=== PATIENT | male | born 1945 | race Caucasian/White ===

== ENCOUNTER 2025-08-16 03:13 | Emergency (ER) | payer MEDICARE, SELFPAY ==
[2025-08-16] VITALS (14 sets, daily range): BP systolic 115–147; BP diastolic 57–78; PULSE 66–78; RESP 17–26; TEMP 36.6–37.1; O2SAT 93–98; BMI 26.4
--- NOTE | 2025-08-16 03:37 | HMH.EDGENADL ---
Discharge Plan Disposition Patient Disposition: Xfer Other Prescriptions Prescriptions: No Action metformin 500 mg tablet 500 mg PO BID Patient Comments: TAKE TWO (2) TABLETS BY MOUTH TWICE DAILY WITH MORNING AND EVENING MEALS glipizide 10 mg tablet 10 mg PO DAILY Patient Comments: TAKE TWO (2) TABLETS BY MOUTH TWICE DAILY prednisone 20 mg tablet 20 mg PO DAILY Patient Comments: TAKE 2 TABLETS BY MOUTH EVERY DAY FOR 5 DAYS amoxicillin 500 mg tablet 500 mg PO BID Patient Comments: TAKE 1 TABLET BY MOUTH TWICE DAILY ondansetron 8 mg tablet,disintegrating 8 mg PO DAILY PRN Patient Comments: DISSOLVE 1 TABLET ON TOP OF TONGUE THREE (3) TIMES DAILY NEEDED, FOR NAUSEA. prednisolone acetate 1 % drops,suspension 1 drp Eye-Left QID Patient Comments: INSTILL ONE (1) DROP LEFT EYE FOUR (4) TIMES A DAY FOR 7-10 DAYS paroxetine HCl 20 mg tablet PO Patient Comments: TAKE ONE-HALF TABLETS BY MOUTH TWICE DAILY simvastatin 20 mg tablet 20 mg PO DAILY Patient Comments: TAKE ONE (1) TABLET BY MOUTH EACH EVENING ferrous sulfate [FeroSul] 325 mg (65 mg iron) tablet 325 mg PO DAILY Patient Comments: TAKE 1 TABLET BY MOUTH EVERY DAY aspirin 81 mg tablet 81 mg PO DAILY cyanocobalamin (vitamin B-12) 1,000 mcg tablet, sublingual 1,000 mcg PO DAILY Patient Comments: PLACE ONE (1) TABLET EVERY DAY BY SUBLINGUAL ROUTE. hydrochlorothiazide 25 mg tablet 25 mg PO DAILY Patient Comments: TAKE ONE (1) TABLET BY MOUTH EVERY DAY mirtazapine 15 mg tablet 15 mg PO DAILY Patient Comments: TAKE ONE (1) TABLET EVERY DAY BY ORAL ROUTE AT BEDTIME. (DME) pen needle, diabetic [Unifine Pentips] 31 gauge x 3/16 needle See Rx Instructions .ROUTE .MEDSUPPLY Qty: 1200 Patient Comments: USE DIRECTED WITH LANTUS Rx Instructions: As directed insulin glargine [Lantus Solostar U-100 Insulin] 100 unit/mL (3 mL) insulin pen 25 unit SQ ONCE Patient Comments: INJECT 25 UNITS BY SUBCUTANEOUS ROUTE. Jardiance 25 mg tablet 25 mg PO DAILY Patient Comments: TAKE ONE (1) TABLET BY MOUTH EVERY DAY Vitamin 27 mg iron- 800 mcg tablet 1 tab PO DAILY Patient Comments: TAKE ONE (1) TABLET EVERY DAY BY ORAL ROUTE. metoprolol succinate 50 mg tablet extended release 24 hr 25 mg PO DAILY Patient Comments: TAKE ONE (1) TABLET BY MOUTH EVERY DAY Referrals Follow up/Referrals: Radha Sawant APRN [Primary Care Provider, Medical] - See instructions Clinical Impressions Clinical Impression: Intracranial mass, Seizure-like activity Instructions Patient Instructions: DI for Altered Mental Status Print Language Print Language: Serbian Discharge ED Provider: Kai Shelton General Adult HPI General Chief complaint: Altered Mental Status Stated complaint: Fever; General Weakness; Abdominal Issues; Dizzy Time Seen by Provider: 08/16/25 03:15 Mode of Arrival: Family Vehicle Source of Information: Patient and Spouse Description of Symptoms (Recalled from ER Triage Doc. by RN): AMS Pt presents to the ED accompanied by his with mutiple complaints. Pt's reports that the pt has AMS, fever ad hypotension X 3 weeks. She reports that the pt was seen at [facility], but states they didn't find anything wrong . History of Present Illness HPI narrative: 79-year-old male with history of coronary artery disease with history of pacemaker, type 2 diabetes, hypertension presents for multiple complaints. Patient has had ongoing intermittent symptoms for the last 2 to 3 weeks. These include episodes of fever and altered mental status that are brief, only happening at night. He has also had lower blood pressure than normal recently. He has had workup at another ER and with his PCP. His workup at the other ER showed mild anemia, a mildly elevated creatinine and minimally elevated LFTs. He had a CT scan which showed a possible cyst in the head of the pancreas. Patient has been eating okay today and has been doing well, but tonight he had one of his episodes. He felt hot and he was very weak, dragging both legs, could barely walk and was unsteady. He was confused at that time as well. He had a fever of 101 during the episode. The symptoms have now almost completely resolved. They report no facial droop or unilateral symptoms. He is working to get follow-up with Dr. Cardona and other providers to try to figure out what is going on. He reports no current chest pain abdominal pain shortness of breath or any other symptoms. He has had this happen about 5 times in the last 2 to 3 weeks. They initially reported no seizure-like activity during these episodes, but on further discussion they report that he has had some generalized shaking that has been associated with some of the episodes lasting a few minutes. Related Data Home Medications ?Medication ?Instructions ?Recorded ?Confirmed amoxicillin 500 mg tablet 500 mg PO BID 08/14/25 08/14/25 aspirin 81 mg tablet 81 mg PO DAILY 08/14/25 08/14/25 cyanocobalamin (vitamin B-12) 1,000 mcg PO DAILY 08/14/25 08/14/25 1,000 mcg sublingual tablet empagliflozin 25 mg tablet 25 mg PO DAILY 08/14/25 08/14/25 (Jardiance) ferrous sulfate 325 mg (65 mg 325 mg PO DAILY 08/14/25 08/14/25 iron) tablet (FeroSul) glipizide 10 mg tablet 10 mg PO DAILY 08/14/25 08/14/25 hydrochlorothiazide 25 mg tablet 25 mg PO DAILY 08/14/25 08/14/25 insulin glargine 100 unit/mL (3 25 unit SQ ONCE 08/14/25 08/14/25 mL) subcutaneous pen (Lantus Solostar U-100 Insulin) metformin 500 mg tablet 500 mg PO BID 08/14/25 08/14/25 metoprolol succinate 50 mg 25 mg PO DAILY 08/14/25 08/14/25 tablet,extended release 24 hr mirtazapine 15 mg tablet 15 mg PO DAILY 08/14/25 08/14/25 ondansetron 8 mg disintegrating 8 mg PO DAILY PRN 08/14/25 08/14/25 tablet paroxetine HCl 20 mg tablet mg PO 08/14/25 08/14/25 pen needle, diabetic 31 gauge x #1,200 ea 08/14/25 08/14/25/16 (Unifine Pentips) prednisolone acetate 1 % eye 1 drp Eye-Left QID 08/14/25 08/14/25 drops,suspension prednisone 20 mg tablet 20 mg PO DAILY 08/14/25 08/14/25 vits no.130-ferrous fum 1 tab PO DAILY 08/14/25 08/14/25 27 mg iron-folic acid 800 mcg tablet ( Vitamin) simvastatin 20 mg tablet 20 mg PO DAILY 08/14/25 08/14/25 Allergies Allergy/AdvReac Type Severity Reaction Status Date / Time No Known Allergies Allergy Verified 08/14/25 09:26 [facility] Disclaimer: The information contained in this section may have been updated after the patient was seen, as this information can be updated by other users. Medical History (Updated 08/16/25 @ 07:00 by Kai Shelton MD) Anemia Hyperlipidemia CAD in [place] artery History of pacemaker Social History (Updated 08/14/25 @ 11:24 by Renetta Chery APRN) Smoking Status: Never smoker alcohol intake: never current occupational status: other Travel in the last 8 weeks?: None Have you lived/traveled outside US in past 30 days?: No Contact w/someone who lives/traveled outside US past 30 days?: No Exposure to someone with infectious disease in past 14 days?: No Do you have a fever (greater than 100.4 F or 38 C)?: No Have you tested positive for COVID-19?: No Exposed to someone with COVID-19 in past 14 days?: No Do you have a sore throat?: No Do you have a cough?: No Do you have any weakness?: No Do you have any diarrhea?: No Are you experiencing any unusual bleeding?: No Do you have any muscle aches/pain?: No Do you have any abdominal pain?: No Are you experiencing loss of taste or smell?: No ROS Obtained: Yes All systems reviewed & no additional complaints except as documented Physical Exam General General appearance: alert and in no apparent distress Head Head exam: atraumatic and normocephalic Eye Eye exam: Present normal appearance, PERRL and EOMI ENT ENT exam: Present normal oropharynx and normal external ear exam Neck Neck exam: Present normal inspection and full ROM Chest Chest inspection: Present normal inspection and symmetric chest wall rise; Absent tenderness Respiratory Respiratory exam: Present normal lung sounds bilaterally; Absent respiratory distress Cardiovascular Cardiovascular exam: Present regular rate and normal rhythm Abdominal Exam Abdominal exam: Present soft; Absent distention, tenderness or guarding Extremities Exam Extremities exam: Present normal inspection; Absent edema or joint swelling Back Exam Back exam: Present normal inspection; Absent tenderness Neurological Exam Neurological exam: Present alert, oriented X3, CN II-XII intact and reflexes normal; Absent motor sensory deficit Psychiatric Psychiatric exam: Present normal affect and normal mood Skin Skin exam: Present warm, dry and normal color Lymphatic Lymphatic Findings: no adenopathy Medical Decision Making Medical Records Medical records reviewed: Yes I reviewed the patient's medical records. Screening: Per USPSTF and CDC recommendations, given the prevalence of disease in our region, it is our hospital?s policy to screen for HIV and viral Hepatitis for all patients aged 18 and over and those with ongoing risk factors. Jaguar Inquiry Pt receiving controlled substance: No Jaguar was queried for this patient: No Vital Signs: 08/16/25 03:28 08/16/25 03:29 08/16/25 03:30 Temperature 98.7 F Temperature Source Temporal Artery Scan Pulse Rate 66 78 Pulse Rate [Left] 75 Respiratory Rate 23 18 23 Blood Pressure 118/64 134/57 L Blood Pressure [Right Arm] 133/67 Blood Pressure Mean 89 82 Blood Pressure Mean [Right Arm] 89 Blood Pressure Source Blood Pressure Source [Right Arm] Automatic Cuff Blood Pressure Position [Right Arm] Sitting 02 Sat by Pulse Oximetry 98 95 93 L Oxygen Delivery Method Room Air 08/16/25 04:00 08/16/25 04:40 08/16/25 04:45 Temperature Temperature Source Pulse Rate 77 75 74 Pulse Rate [Left] Respiratory Rate 26 H 17 21 Blood Pressure 115/62 Blood Pressure [Right Arm] Blood Pressure Mean 88 Blood Pressure Mean [Right Arm] Blood Pressure Source Blood Pressure Source [Right Arm] Blood Pressure Position [Right Arm] 02 Sat by Pulse Oximetry 96 97 97 Oxygen Delivery Method 08/16/25 05:00 08/16/25 05:15 08/16/25 05:30 Temperature Temperature Source Pulse Rate 78 69 Pulse Rate [Left] Respiratory Rate 18 23 Blood Pressure 136/74 147/73 H Blood Pressure [Right Arm] Blood Pressure Mean 82 Blood Pressure Mean [Right Arm] Blood Pressure Source Automatic Cuff Blood Pressure Source [Right Arm] Blood Pressure Position [Right Arm] 02 Sat by Pulse Oximetry 97 95 Oxygen Delivery Method Room Air Lab Data Lab results reviewed: Yes I reviewed the patient's lab results. Lab Results 08/16/25 03:22: WBC 4.5 L, RBC 4.57 L, Hgb 13.3 L, Hct 39.5 L, MCV 86.4, MCH 29.1, MCHC 33.7, RDW 12.8, Plt Count 176, MPV 10.2, Neut % (Auto) 69.8, Lymph % (Auto) 19.8, [place] % (Auto) 9.3, Eos % (Auto) 0.0 L, Baso % (Auto) 0.2, Neut # (Auto) 3.2, Lymph # (Auto) 0.9, [place] # (Auto) 0.4, Eos # (Auto) 0.0, Baso # (Auto) 0.0, PT 11.4, INR 1.03, Sodium 134 L, Potassium 4.2, Chloride 102, Carbon Dioxide 23, Anion Gap 13.2, BUN 40 H, Creatinine 1.20, Estimated Creat Clear 63, Estimated GFR 59, Est GFR ( Amer) 71, Glucose 187 H, Calcium 10.0, Phosphorus 4.0, Magnesium 2.0, Total Bilirubin 0.8, AST 73 H, ALT 110 H, Alkaline Phosphatase 135 H, Troponin I < 0.01, C-Reactive Protein 32.9 H, Total Protein 6.4, Albumin 3.6, Globulin 2.8, Albumin/Globulin Ratio 1.3, Lipase 259, TSH 2.84, Thyroxine (T4) 8.1 08/16/25 03:43: SARS-CoV-2 (PCR) Not detected, Influenza A Untype (PCR) Not detected, Influenza Type B (PCR) Not detected 08/16/25 03:48: Urine Color Yellow, Urine Appearance Clear, Urine pH 5.5, Ur Specific [place] <= 1.005, Urine Protein Negative, Urine Glucose (UA) 3+, Urine Ketones Negative, Urine Blood Negative, Urine Nitrate Negative, Urine Bilirubin Negative, Urine Urobilinogen 0.2, Ur Leukocyte Esterase Negative, Urine RBC Occasional 08/16/25 03:22 08/16/25 03:22 Orders (Tests/Meds): ED MEDICATIONS Generic Name Dose Route Start Last Admin Trade Name Freq PRN Reason Stop Dose Admin Levetiracetam 3,500 mg/ Sodium 135 mls @ 270 mls/hr 08/16/25 06:48 Chloride IV 08/16/25 06:49 ONCE ONE Discontinued Medications Generic Name Dose Route Start Last Admin Trade Name Freq PRN Reason Stop Dose Admin Iopamidol 80 ml 08/16/25 04:21 08/16/25 04:22 Iopamidol-370 (76%);100ml Bottle IV 08/16/25 04:22 80 ml ONCE ONE Administration Sodium Chloride 50 ml 08/16/25 04:21 08/16/25 04:22 0.9 % Sodium Chloride 50 Ml Vial IV 08/16/25 04:22 50 ml ONCE ONE Administration Sodium Chloride 10 ml 08/16/25 04:21 08/16/25 04:22 Sodium Chloride 0.9% 10ml Syr (Rad Only) IV 08/16/25 04:22 10 ml ONCE ONE Administration ORDERS Category Date Time Status CT angio head Stat Cat Scan 08/16/25 03:[address] angio neck Stat Cat Scan 08/16/25 03:[address] head/brain wo con Stat Cat Scan 08/16/25 03:38 Completed CXR --portable [XR chest portable] Stat Exams 08/16/25 04:10 Completed KUB (single view) [XR KUB] Stat Exams 08/16/25 04:12 Completed CBC w/Auto Diff [Complete Blood Count Auto Diff] Stat Lab 08/16/25 03:22 Completed CMP [Comprehensive Metabolic Panel] Stat Lab 08/16/25 03:22 Completed CRP [C-Reactive Protein] Stat Lab 08/16/25 03:22 Completed INR [Prothrombin Time INR] Stat Lab 08/16/25 03:22 Completed Lipase Stat Lab 08/16/25 03:22 Completed Magnesium Stat Lab 08/16/25 03:22 Completed Phosphorous Stat Lab 08/16/25 03:22 Completed Rapid PCR Covid and Flu A/B Stat Lab 08/16/25 03:43 Completed T4 (Thyroxine) Stat Lab 08/16/25 03:22 Completed TSH [Thyroid Stimulating Hormone] Stat Lab 08/16/25 03:22 Completed Troponin I Q3H Lab 08/16/25 03:22 Completed Troponin I Q3H Lab 08/16/25 06:45 Ordered UA [Urinalysis and Microscopic] Stat Lab 08/16/25 03:48 Completed Blood Culture Stat Micro 08/16/25 03:52 Received Medical Decision Narrative: 79-year-old male with history of type 2 diabetes, coronary artery disease, hypertension presents for multiple complaints. History was obtained via interactive discussion with patient, family. On arrival, patient is [afebrile, hemodynamically stable, satting appropriately, alert, GCS 15], moving all extremities spontaneously. Full physical exam performed and significant for NIH of 0. Family reports that he is a little bit more slow to respond/confused than normal, but he is much better from the episode prior to arrival. Differential includes but is not limited to stroke, seizure, intracranial mass, UTI, pneumonia, malignancy Workup initiated including CTA head and neck, chest x-ray, KUB, broad-spectrum labs. On re-evaluation, patient remains hemodynamically stable. Laboratory workup independently interpreted by me and significant for normal renal function, urinalysis without evidence of infection, mild anemia, no significant electrolyte derangement, negative initial troponin, negative lipase, normal thyroid studies. Imaging independently interpreted by me and significant for no evidence of acute stroke. Patient has a 3 cm enhancing midline extra-axial mass arising from the floor of the anterior cranial fossa. No evidence of mass effect or shift. See radiology read for full review of final results. The underlying etiology of patient's symptoms may be this developing meningioma/frontal mass. Could be explained by subclinical seizures secondary to the mass, or perhaps mass effect on the HPA axis is causing some autonomic changes. I called and spoke with the transfer center for further guidance. Surgery reports that they would be happy to see the patient in clinic but do not have any immediate intervention. Called and spoke with neurology as well given the concern for possible seizures in the setting of brain mass. They recommend medicine admission with neurology consultation. We were able to get the patient accepted to [facility] ER for further evaluation. She was loaded with 2.5 g of Keppra, neurology recommends 1 g Keppra twice daily thereafter. Given patient history, exam and workup, patient's presentation most likely represents intracranial mass with possible new onset seizures. Patient was transferred POV per family request. Procedures Risk/Benefits of Procedure(s) Were Explained: Yes Critical Care Critical Care Time Critical Care Time: No
--- NOTE | 2025-08-16 03:38 | CT_ITS ---
PROCEDURE INFORMATION: Exam: CTA Neck Without And With Contrast Exam date and time: 08/16/2025 4:23 AM Age: 79 years old Clinical indication: Weakness and other: Intermittent AMS; Additional info: Intermittent ams/ generalized weakness TECHNIQUE: Imaging protocol: Computed tomographic angiography of the neck without and with contrast. Exam focused on the cervical segments of the vasculature. 3D rendering (Not supervised by radiologist): MIP and/or 3D reconstructed images were created by the technologist. Radiation optimization: All CT scans at this facility use at least one of these dose optimization techniques: automated exposure control; mA and/or kV adjustment per patient size (includes targeted exams where dose is matched to clinical indication); or iterative reconstruction. Contrast material: ISVOUE; Contrast volume: 75 ml; Contrast route: INTRAVENOUS (IV); COMPARISON: CT HEAD/BRAIN WO CON 08/16/2025 4:22 AM FINDINGS: Tubes, catheters and devices: Left anterior chest wall cardiac pacemaker. Right common carotid artery: No stenosis. No dissection or occlusion. Right internal carotid artery: No stenosis of the extracranial segment. No dissection or occlusion. Right external carotid artery: No occlusion or stenosis of the origin. Left common carotid artery: No stenosis. No dissection or occlusion. Left internal carotid artery: No stenosis of the extracranial segment. No dissection or occlusion. Left external carotid artery: No occlusion or stenosis of the origin. Right vertebral artery: Dominant right vertebral artery, a normal anatomic variant. No stenosis. No dissection or occlusion. Left vertebral artery: Hypoplastic non dominant left vertebral artery, a normal anatomic variant. No stenosis. No dissection or occlusion. Soft tissues: Normal. No significant soft tissue swelling. Bones/joints: No acute fracture. Lungs: Small calcified granulomas in the upper lungs. Visualized lung apices otherwise clear. IMPRESSION: No extracranial stenosis, dissection, nor occlusion. REFERENCES: NASCET CRITERIA. The degree of stenosis in the cervical segment of the internal carotid artery is based on NASCET criteria. Normal is no stenosis. Mild is less than 50% stenosis. Moderate is 50-69% stenosis. Severe is 70% to 99% stenosis. Total occlusion is no detectable patent lumen.
--- NOTE | 2025-08-16 03:38 | CT_ITS ---
PROCEDURE INFORMATION: Exam: CTA Head Without And With Contrast, Arteriography Exam date and time: 08/16/2025 4:23 AM Age: 79 years old Clinical indication: Weakness; Additional info: Intermittent ams/ generalized weakness TECHNIQUE: Imaging protocol: Computed tomographic angiography of the head without and with contrast. Exam focused on the arteries. 3D rendering (Not supervised by radiologist): MIP and/or 3D reconstructed images were created by the technologist. Radiation optimization: All CT scans at this facility use at least one of these dose optimization techniques: automated exposure control; mA and/or kV adjustment per patient size (includes targeted exams where dose is matched to clinical indication); or iterative reconstruction. Contrast material: ISOVUE; Contrast volume: 75 ml; Contrast route: INTRAVENOUS (IV); COMPARISON: CT HEAD/BRAIN WO CON 08/16/2025 4:22 AM FINDINGS: ANTERIOR CIRCULATION: Right internal carotid artery: Intracranial segment is patent with no significant stenosis or occlusion. No aneurysm. Right middle cerebral artery: No occlusion or significant stenosis. No aneurysm. Right anterior cerebral artery: No occlusion or significant stenosis. No aneurysm. Left internal carotid artery: Intracranial segment is patent with no significant stenosis. No aneurysm. Left middle cerebral artery: No occlusion or significant stenosis. No aneurysm. Left anterior cerebral artery: No occlusion or significant stenosis. No aneurysm. POSTERIOR CIRCULATION: Right vertebral artery: Dominant right vertebral artery, a normal anatomic variant. Mild calcific plaque. No occlusion or significant stenosis. No aneurysm. Left vertebral artery: Hypoplastic left vertebral artery, terminating as the PICA, a normal anatomic variant. No occlusion or significant stenosis. No aneurysm. Basilar artery: No occlusion or significant stenosis. No aneurysm. Right posterior cerebral artery: No occlusion or significant stenosis. No aneurysm. Left posterior cerebral artery: No occlusion or significant stenosis. No aneurysm. HEAD: Brain: A 3 cm enhancing midline extra-axial mass, arising from the floor of the anterior cranial fossa. No midline shift. No cerebral edema. Cerebral ventricles: Normal. No ventriculomegaly. Bones: No acute osseous abnormality. Paranasal sinuses: Visualized sinuses are normal. No fluid levels. Mastoid air cells: Visualized mastoids are normal. No mastoid effusion. Soft tissues: Unremarkable. IMPRESSION: 1. No large vessel arterial occlusion or stenosis. 2. A 3 cm enhancing midline extra-axial mass, arising from the floor of the anterior cranial fossa. Favor meningioma.
--- NOTE | 2025-08-16 03:38 | CT_ITS ---
PROCEDURE INFORMATION: Exam: CT Head Without Contrast Exam date and time: 08/16/2025 4:22 AM Age: 79 years old Clinical indication: Altered mental status/memory loss and other: Generalized weakness; Additional info: Intermittent ams/ generalized weakness TECHNIQUE: Imaging protocol: Computed tomography of the head without contrast. Radiation optimization: All CT scans at this facility use at least one of these dose optimization techniques: automated exposure control; mA and/or kV adjustment per patient size (includes targeted exams where dose is matched to clinical indication); or iterative reconstruction. COMPARISON: CT ANGIO HEAD 08/16/2025 4:23 AM FINDINGS: Brain: Mild age related diffuse cerebral volume loss. No acute intracranial hemorrhage. No acute large territory infarct. No significant cerebral edema. A 2-3 cm mildly hyperdense, extra-axial mass arising from the floor of the anterior cranial fossa in the midline. No midline shift. Cerebral ventricles: No ventriculomegaly. Paranasal sinuses: Visualized paranasal sinuses are clear. Mastoid air cells: Visualized mastoid air cells are clear. Orbital cavities: Status post bilateral intra-ocular lens replacement. Bones: No acute fracture. Soft tissues: Unremarkable. Vasculature: Atherosclerotic calcification of the carotid siphons and cisternal vertebral arteries. IMPRESSION: 1. No acute intracranial abnormality identified. 2. A 2-3 cm mildly hyperdense, extra-axial mass arising from the floor of the anterior cranial fossa in the midline. Suspect a meningioma. 3. If clinically indicated, consider further evaluation with MRI, which is more sensitive for detecting acute ischemic changes and other subtle pathology. ASSESSMENT: ASPECTS ([place] Stroke Program Early CT Score) is 10.
[2025-08-16 03:49] LABS: Coronavirus 19, PCR Not Detected (NotDetected); Influenza A, PCR Not Detected (NotDetected); Influenza B, PCR Not Detected (NotDetected)
[2025-08-16 03:49] LABS: Hematocrit 39.5 % (42.0-52.0); Hemoglobin 13.3 g/dL (14.1-18.0); Immature Granulocytes % 0.9 %; Mean Corpuscular HGB Conc 33.7 g/dL (31.8-35.4); Mean Corpuscular Hemoglobin 29.1 pg (27.0-31.2); Mean Corpuscular Volume 86.4 fl (80-94); Nucleated Red Blood Cells % 0 %; Platelet Count 176 K/mm3 (142-424); Red Blood Count 4.57 M/mm3 (4.60-6.20); Red Cell Distribution Width-SD 40.2 fL; White Blood Count 4.5 K/mm3 (4.8-10.8)
[2025-08-16 03:55] LABS: Microscopic, Urine URINE MICROSCOPIC (MICROSCOPIC)
[2025-08-16 04:01] LABS: Alanine Aminotransferase 110 U/L (12-78); Albumin Level 3.6 g/dl (3.5-5.0); Albumin/Globulin Ratio 1.3 (1.1-1.8); Alkaline Phosphatase 135 U/L (38-126); Anion Gap 13.2 mEq/L (5-15); Aspartate Amino Transferase 73 U/L (17-59); Bilirubin,Total 0.8 mg/dl (0.2-1.3); Blood Urea Nitrogen 40 mg/dl (9-20); Calcium 10.0 mg/dl (8.4-10.2); Carbon Dioxide 23 mmol/L (22.0-30.0); Chloride 102 mmol/L (98-107); Creatinine Clearance Estimated 63 mL/min (50-200); Creatinine,Serum 1.20 mg/dl (0.66-1.25); Estimated Glomerular Filt Rate 59 ml/min (>60); GFR (African American) 71 ML/MIN (>60); Globulin 2.8 g/dL (1.3-3.2); Glucose 187 mg/dl (74-100); INR 1.03 (0.9-1.1); Magnesium 2.0 mg/dl (1.6-2.3); Phosphorous 4.0 mg/dl (2.5-4.5); Potassium 4.2 mmoL/L (3.5-5.1); Prothrombin Time 11.4 seconds (10.1-12.5); Sodium 134 mmol/L (136-145); Total Protein,Serum 6.4 g/dl (6.3-8.2)
[2025-08-16 04:01] LABS: Bilirubin,Urine Negative (Negative); Color,Urine YELLOW (Yellow); Glucose,Urine (UA) 3+ (Negative); Ketones,Urine Negative (Negative); Leukocyte Esterase,Urine Negative (Negative); PH,Urine 5.5 (5.0-8.5); Protein,Urine Negative (Negative); Specific Gravity, Urine <= 1.005 (1.005-1.030); Urobilinogen,Urine 0.2 EU/dl (0.2)
[2025-08-16 04:03] LABS: Lipase 259 U/L (23-300)
[2025-08-16 04:06] LABS: C-Reactive Protein 32.9 mg/L (0-4)
[2025-08-16 04:07] LABS: RBC,Urine Occasional #/hpf (0-3)
--- NOTE | 2025-08-16 04:10 | XR_ITS ---
PROCEDURE INFORMATION: Exam: XR Chest Exam date and time: 08/16/2025 4:26 AM Age: 79 years old Clinical indication: Fever; Additional info: Intermittent fevers TECHNIQUE: Imaging protocol: Radiologic exam of the chest. Views: 1 view. COMPARISON: CT ANGIO NECK 08/16/2025 4:23 AM FINDINGS: Tubes, catheters and devices: Left anterior chest wall cardiac pacemaker. Lungs: No consolidation, mass, or pulmonary edema. Pleural spaces: No pneumothorax or pleural effusion. Heart/Mediastinum: Borderline cardiomegaly. Bones/joints: No acute osseous abnormality. IMPRESSION: No acute findings.
--- NOTE | 2025-08-16 04:12 | XR_ITS ---
PROCEDURE INFORMATION: Exam: XR Abdomen Exam date and time: 08/16/2025 4:26 AM Age: 79 years old Clinical indication: Constipation TECHNIQUE: Imaging protocol: Radiologic exam of the abdomen. Views: Frontal supine view of the abdomen. 1 View. COMPARISON: No relevant prior studies available. FINDINGS: Gastrointestinal tract: Nonobstructive bowel gas pattern. Intraperitoneal space: No definite free air appreciated on what appears to be a portable supine exam. Organs: Excreted contrast incidentally noted in the renal collecting system bilaterally. Bones/joints: No acute fracture. IMPRESSION: No acute findings.
[2025-08-16 04:16] LABS: Troponin I < 0.01 ng/ml (0.00-0.034)
[2025-08-16 04:20] LABS: T4 (Thyroxine) 8.1 ug/dl (5.53-11.0)
[2025-08-16] MEDS: SODIUM CHLORIDE 0.9% 10ML SYR (RAD ONLY) 10 ML IV (04:22)
[2025-08-16] MEDS: IOPAMIDOL-370 (76%);100ML BOTTLE 80 ML IV (04:22)
[2025-08-16] MEDS: 0.9 % SODIUM CHLORIDE 50 ML VIAL IV (04:22)
[2025-08-16 04:33] LABS: Thyroid Stimulating Hormone 2.84 uIU/mL (0.465-4.68)
--- NOTE | 2025-08-16 05:23 | PC.NURSE ---
Called for pt consult or possible transfer
[2025-08-16] MEDS: LEVETIRACETAM IV (07:13)
[2025-08-16] MEDS: SODIUM CHLORIDE 0.9% IV (07:13)
== END 2025-08-16 08:05 | disposition other institution (70) ==
PROVIDERS: Emergency Provider Emergency Medicine; PCP Nurse Practitioner Family
DX: R90.0 Intracranial space-occupying lesion found on diagnostic imaging of central nervous system (principal); R56.9 Unspecified convulsions; R50.9 Fever, unspecified; R42 Dizziness and giddiness
CPT/HCPCS: 70450; 70496; 70498; 71045; 74018; 80053; 81001; 83690; 83735; 84100; 84436; 84443; 84484; 85025; 85610; 86140; 87040; 87636; 96374; 99285; J1953; Q9967